=== PATIENT | male | born 1955 | race Caucasian/White ===

== ENCOUNTER 2023-09-04 14:12 | Emergency (ER) | payer OTHER, MEDICAID ==
[~2023-09-04] VITALS: Ht 167.6 cm; Wt 81.2 kg
[2023-09-04 14:17] VITALS: BP 101/63; PULSE 107; RESP 24; TEMP 98.3; O2SAT 95
[2023-09-04 14:34] LABS: BASOPHILS % (AUTO) 0.3 % (0.0-2.0); EOSINOPHILS % (AUTO) 0.2 % (0.0-4.0); HEMATOCRIT 40.6 % (36-52); LYMPHOCYTES # (AUTO) 0.9 K/uL (2.0-11.5); MEAN CORPUSCULAR HEMOGLOBIN 27 pg (27-31); MEAN CORPUSCULAR HGB CONC 32 g/dL (33-37); MEAN CORPUSCULAR VOLUME 82.8 fL (80-94); MONOCYTES # (AUTO) 1.1 K/uL (0.8-1.0); MONOCYTES % (AUTO) 10.3 % (1.7-9.3); NEUTROPHILS # (AUTO) 8.7 K/uL (1.8-7.7); NEUTROPHILS % (AUTO) 81.2 % (42.2-75.2); PLATELET COUNT (AUTO) 269 K/uL (140-450); WHITE BLOOD COUNT (AUTO) 10.7 K/uL (4.8-10.8)
[2023-09-04 14:45] LABS: ANION GAP 20.4 (8-16); CARBON DIOXIDE 21.9 mmol/L (21-32); CREATININE 0.9 mg/dL (0.6-1.3); POTASSIUM 4.3 mmol/L (3.5-5.1)
[2023-09-04 14:51] LABS: ALANINE AMINOTRANSFERASE 61 U/L (12-78); ALBUMIN 3.7 g/dL (3.4-5.0); ALKALINE PHOSPHATASE 71 U/L (50-136); ASPARTATE AMINOTRANSFERASE 377 U/L (15-37); BILIRUBIN,DIRECT 0.4 mg/dL (0.0-0.3); PHOSPHORUS 4.5 mg/dL (2.5-4.9); TOTAL PROTEIN, SERUM 7.5 g/dL (6.4-8.2)
[2023-09-04 14:57] LABS: LACTIC ACID 3.8 mmol/L (0.4-2.0)
[2023-09-04 15:14] LABS: TOTAL BILIRUBIN 1.2 mg/dL (0.0-1.0)
[2023-09-04] MEDS: ASPIRIN 81 MG TAB.CHEW PO ONE ×2 (15:56→16:18)
[2023-09-04] MEDS ORDERED: ATOR20TA40 PO (15:58)
[2023-09-04] MEDS ORDERED: EMPA25TA PO (15:58)
[2023-09-04] MEDS ORDERED: METF-352 PO (15:58)
[2023-09-04] MEDS ORDERED: CHOL200072 PO (15:58)
[2023-09-04] MEDS ORDERED: HEPARIN PER PHARMACY MC PRN (16:00)
[2023-09-04 16:33] LABS: PARTIAL THROMBOPLASTIN TIME 28.5 secs (22-35.6)
[2023-09-04 16:56] LABS: APPEARANCE,URINE CLEAR (CLEAR); BILIRUBIN,URINE NEGATIVE (NEGATIVE); BLOOD, URINE NEGATIVE (NEGATIVE); COLOR,URINE YELLOW (YELLOW); LEUKOCYTE ESTERASE ,URINE NEGATIVE (NEGATIVE); NITRITE, URINE NEGATIVE (NEGATIVE); PH,URINE 5.5 (5.0-9.0); PROTEIN,URINE 2+ (NEGATIVE); UGLUCOSE 3+ (NEGATIVE)
[2023-09-04 17:14] LABS: FLU A ANTIGEN negative (NEGATIVE); FLU B ANTIGEN NEGATIVE (NEGATIVE)
[2023-09-04 17:14] LABS: INR 1.01 (0.8-1.2); PROTHROMBIN TIME 10.6 secs (10.8-13.4)
[2023-09-04] MEDS: hePARIN / DEXT 5% PREMIX 250 ML IV SCH (18:12)
[2023-09-04] MEDS: hePARIN / DEXT 5% PREMIX 250 ML IV ONE (18:29)
[2023-09-05 00:37] VITALS: BP 106/66; PULSE 95; RESP 22; TEMP 98; O2SAT 99
== END 2023-09-05 00:37 | disposition short-term general hospital (02) ==
LOC: MED 14:12
DX: I21.9 Acute myocardial infarction, unspecified (principal); E87.20 Acidosis, unspecified; R74.01 Elevation of levels of liver transaminase levels; R19.7 Diarrhea, unspecified; Z20.822 Contact with and (suspected) exposure to COVID-19; E11.9 Type 2 diabetes mellitus without complications; I10 Essential (primary) hypertension; E78.5 Hyperlipidemia, unspecified; Z79.899 Other long term (current) drug therapy; Z88.0 Allergy status to penicillin
CPT/HCPCS: 36415; 70450; 71045; 73562; 80048; 80076; 81003; 82948; 83605; 83735; 84100; 84484; 85025; 85610; 85730; 87040; 87426; 87804; 93005; 96365; 96366; 96375; 99291; 99292; J1644